=== PATIENT | female | born 1945 | race Caucasian/White ===

== ENCOUNTER 2020-05-25 16:06 | Outpatient (CLI) | payer MEDICARE, SELFPAY ==
--- NOTE | ~2020-05-25 | XR_ITS ---
EXAMINATION: XR cervical spine 4-5V EXAM DATE: 05/25/2020 16:59 INDICATION: Cervical pain. TECHNIQUE: Cervical spine frontal, open-mouth odontoid projections. There are 2 lateral projections with different penetration. There is no prior study for comparison. FINDINGS: Mild to moderate disc disease at C4-5 and 5-6. Overall mild to moderate cervical arthropat hy. The vertebral bodies are aligned in the AP dimension. The odontoid process is intact. The latera l masses of C1 line up with C2. Prevertebral soft tissue and pre-dens space are within normal limits. IMPRESSION: Moderate cervical spondylosis. Reviewed, dictated and finalized at location A.
--- NOTE | ~2020-05-25 | XR_ITS ---
EXAMINATION: XR shoulder LT min 2V EXAM DATE: 05/25/2020 16:59 INDICATION: No known recent injury provided at this time. Pain of the left shoulder. TECHNIQUE: The following left shoulder projections obtained: frontal projection with internal rotatio n, frontal projection with external rotation, Grashey, and scapular Y view (4+ views). There is no p rior study for comparison. FINDINGS: No evidence of left shoulder rotator cuff calcific tendinosis. There is mild acromioclavi cular joint primary osteoarthritis. There are no acute fractures or dislocations identified. There i s no subcutaneous gas. The soft tissue is unremarkable. There are no radiopaque foreign bodies. IMPRESSION: Mild left acromioclavicular joint osteoarthritis. Reviewed, dictated and finalized at location A.
--- NOTE | ~2020-05-25 | XR_ITS ---
EXAMINATION: XR shoulder RT min 2V EXAM DATE: 05/25/2020 16:59 INDICATION: No known recent injury provided at this time. Pain of the right shoulder. TECHNIQUE: The following right shoulder projections obtained: frontal projection with internal rotati on, frontal projection with external rotation, Grashey, and scapular Y view (4+ views). There is no prior study for comparison. FINDINGS: No evidence of right shoulder rotator cuff calcific tendinosis. There is mild glenohumeral and acromioclavicular joint primary osteoarthritis. There are no acute fractures or dislocations justino ntified. There is no subcutaneous gas. The soft tissue is unremarkable. There are no radiopaque f oreign bodies. IMPRESSION: Mild right shoulder osteoarthritis. Reviewed, dictated and finalized at location A.
--- NOTE | ~2020-05-25 | XR_ITS ---
EXAMINATION: XR thoracic spine 2V EXAM DATE: 05/25/2020 16:59 INDICATION: Upper thoracic pain. TECHNIQUE: Frontal and lateral projections of the thoracic spine for interpretation. There is no jana or study for comparison. FINDINGS: Small to moderate-sized mid and lower thoracic endplate osteophytes and mild to moderate d isc disease. The vertebral bodies are aligned in the AP dimension. No endplate erosive change. Parasp inal soft tissue is unremarkable. There is aortic arteriosclerosis. 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 Reviewed, dictated and finalized at location A.
== END 2020-05-25 16:07 | disposition home or self-care (01) ==
DX: M54.9 Dorsalgia, unspecified (principal); M47.814 Spondylosis without myelopathy or radiculopathy, thoracic region; M47.812 Spondylosis without myelopathy or radiculopathy, cervical region; M19.012 Primary osteoarthritis, left shoulder; M19.011 Primary osteoarthritis, right shoulder
CPT/HCPCS: 72050; 72070; 73030